=== PATIENT | male | born 1970 | race Two or more races ===

== ENCOUNTER 2021-02-02 10:25 | Inpatient (IN) | payer OTHER ==
[~2021-02-02] VITALS: Ht 165.1 cm; Wt 190.0 kg
[~2021-02-02 10:25] MED LIST: LOTREL 5-20 MG1 CAP PO
[2021-02-03] MEDS ORDERED: TYLENOL ARTHRI650 MG PO (06:54)
[2021-02-03] MEDS ORDERED: NEURONTIN300 MG PO (06:54)
[2021-02-03] MEDS ORDERED: ULTRAM50 MG PO (06:54)
[2021-02-03] MEDS ORDERED: MIRALAX17 GM PO (06:54)
== END 2021-02-03 18:33 | disposition home or self-care (01) | DRG 355 ==
LOC: CIR.AMB 10:25 → O/R 14:34 → SURH 14:34
PROVIDERS: ADMIT Surgery; ATTEND Surgery
PROC: 0WUF4JZ Supplement Abdominal Wall with Synthetic Substitute, Percutaneous Endoscopic Approach (ICD-10-PCS; principal; 2021-02-02 12:15)
DX: K43.0 Incisional hernia with obstruction, without gangrene (principal); K42.0 Umbilical hernia with obstruction, without gangrene